=== PATIENT | male | born 1970 | race Caucasian/White ===

== ENCOUNTER 2017-08-27 16:16 | Inpatient (IN) | payer MEDICAID ==
[~2017-08-27] VITALS: Ht 180.3 cm; Wt 113.0 kg
[2017-08-27 16:26] VITALS: Ht 180.3 cm; Wt 113.0 kg
[2017-08-27 18:07] LABS: BASOPHIL % 0.4 % (0-2); RED CELL DISTRIBUTION WIDTH 13.9 % (11.5-14.5)
[2017-08-27 18:10] LABS: CALCIUM 9.1 mg/dL (8.5-10.1); CARBON DIOXIDE 26.4 mmol/L (21-32); CHLORIDE SERUM 100 mmol/L (98-107); CREATININE SERUM 1.3 mg/dL (0.7-1.3); GFR1 > 60 mL/min; GLUCOSE SERUM 137 mg/dL (74-106); POTASSIUM SERUM 3.7 mmol/L (3.5-5.1); SODIUM SERUM 139 mmol/L (136-145)
[2017-08-27 18:21] LABS: ALBUMIN 3.5 g/dL (3.4-5.0); ALKALINE PHOSPHATASE 93 U/L (46-116); ALT/SGPT 28 U/L (16-63); AST/SGOT 23 U/L (15-37); BILIRUBIN TOTAL 0.53 mg/dL (0.20-1.00); TOTAL PROTEIN, SERUM 7.8 g/dL (6.4-8.2)
[2017-08-27 18:21] LABS: PLATELET COUNT 115 x10^3mcL (130-400)
[2017-08-27 18:23] LABS: CK-MB 0.5 ng/mL (0-3.6)
[2017-08-27 18:26] LABS: T3 TOTAL 1.51 ng/mL
[2017-08-27 18:39] LABS: FREE T4 1.19 ng/dL (0.76-1.46); FREE THYROXINE INDEX 3.3 ug/dL (1.4-4.5); T4(THYROXINE) 9.1 ug/dL (4.7-13.3)
[2017-08-27 18:41] LABS: C REACTIVE PROTEIN 22.9 mg/dL (<=0.9)
[2017-08-27 20:11] LABS: ERYTHROCYTE SED RATE 28 mm/hr (0-15)
[2017-08-27 20:29] VITALS: BP 140/89
[2017-08-27 20:49] LABS: MAGNESIUM 2.3 mg/dL (1.8-2.4); PHOSPHOROUS 2.6 mg/dL (2.5-4.9)
[2017-08-27 20:51] LABS: CHOLESTEROL/HDL RATIO 7.9
[2017-08-27 21:39] LABS: UA SPECIFIC GRAVITY 1.025 (1.005-1.035); microscopic required? YES; urine erythrocyte NEGATIVE (NEGATIVE)
[2017-08-27 21:57] LABS: AMPHETAMINE QUAL UR NONE DETECTED (See below)
[2017-08-28 05:17] VITALS: BP 106/52
[2017-08-28 07:16] LABS: BASOPHIL % 0.6 % (0-2); RED CELL DISTRIBUTION WIDTH 13.6 % (11.5-14.5)
[2017-08-28 07:33] LABS: CALCIUM 7.3 mg/dL (8.5-10.1); CARBON DIOXIDE 25.2 mmol/L (21-32); CHLORIDE SERUM 100 mmol/L (98-107); CREATININE SERUM 1.2 mg/dL (0.7-1.3); GFR1 > 60 mL/min; GLUCOSE SERUM 128 mg/dL (74-106); POTASSIUM SERUM 3.9 mmol/L (3.5-5.1); SODIUM SERUM 134 mmol/L (136-145)
[2017-08-28 07:50] LABS: PLATELET COUNT 129 x10^3mcL (130-400)
[2017-08-28 09:12] VITALS: BP 103/67
[2017-08-28 17:58] VITALS: BP 116/71
[2017-08-28 20:48] VITALS: BP 119/71
[2017-08-29 05:59] VITALS: BP 106/53
[2017-08-29 07:07] LABS: BASOPHIL % 0.3 % (0-2); PLATELET COUNT 155 x10^3mcL (130-400); RED CELL DISTRIBUTION WIDTH 13.8 % (11.5-14.5)
[2017-08-29 07:21] LABS: ALKALINE PHOSPHATASE 80 U/L (46-116); ALT/SGPT 23 U/L (16-63); AST/SGOT 18 U/L (15-37); BILIRUBIN TOTAL 0.5 mg/dL (0.20-1.00); CALCIUM 7.8 mg/dL (8.5-10.1); CARBON DIOXIDE 30.6 mmol/L (21-32); CHLORIDE SERUM 103 mmol/L (98-107); CREATININE SERUM 1.3 mg/dL (0.7-1.3); GFR1 > 60 mL/min; GLUCOSE SERUM 140 mg/dL (74-106); POTASSIUM SERUM 4.6 mmol/L (3.5-5.1); SODIUM SERUM 138 mmol/L (136-145); TOTAL PROTEIN, SERUM 6.5 g/dL (6.4-8.2)
[2017-08-29 07:22] LABS: ALBUMIN 2.7 g/dL (3.4-5.0)
[2017-08-29 09:30] VITALS: BP 122/72
[2017-08-29 17:48] VITALS: BP 114/70
[2017-08-29 21:23] VITALS: BP 106/60
[2017-08-30 06:00] VITALS: BP 140/94
[2017-08-30 06:23] LABS: BASOPHIL % 0.3 % (0-2); PLATELET COUNT 164 x10^3mcL (130-400); RED CELL DISTRIBUTION WIDTH 13.4 % (11.5-14.5)
[2017-08-30 07:02] LABS: ALKALINE PHOSPHATASE 63 U/L (46-116); ALT/SGPT 32 U/L (16-63); AST/SGOT 22 U/L (15-37); BILIRUBIN TOTAL 0.41 mg/dL (0.20-1.00); CALCIUM 8.5 mg/dL (8.5-10.1); CHLORIDE SERUM 104 mmol/L (98-107); CREATININE SERUM 1.3 mg/dL (0.7-1.3); GFR1 > 60 mL/min; GLUCOSE SERUM 121 mg/dL (74-106); POTASSIUM SERUM 4.5 mmol/L (3.5-5.1); SODIUM SERUM 137 mmol/L (136-145); TOTAL PROTEIN, SERUM 6.2 g/dL (6.4-8.2)
[2017-08-30 07:07] LABS: ALBUMIN 2.6 g/dL (3.4-5.0)
[2017-08-30 08:04] VITALS: BP 109/79
[2017-08-30] MEDS ORDERED: BACTRIM DS1 TAB PO ×2 (15:46→15:49)
[2017-08-30 16:51] VITALS: BP 109/79
[2017-08-30 17:21] VITALS: BP 130/83
== END 2017-08-30 19:12 | disposition home or self-care (01) | DRG 720 ==
LOC: ED 16:16 → MU 19:21
PROVIDERS: Family Medicine; Internal Medicine; Specialist
PROC: 0H9KXZZ Drainage of Right Lower Leg Skin, External Approach (ICD-10-PCS; principal; 2017-08-28)
DX: A41.9 Sepsis, unspecified organism (principal); N17.0 Acute kidney failure with tubular necrosis; E43 Unspecified severe protein-calorie malnutrition; E11.65 Type 2 diabetes mellitus with hyperglycemia; E83.51 Hypocalcemia; D68.59 Other primary thrombophilia; L03.115 Cellulitis of right lower limb; R65.20 Severe sepsis without septic shock; R23.8 Other skin changes; E02 Subclinical iodine-deficiency hypothyroidism; E78.5 Hyperlipidemia, unspecified; E66.9 Obesity, unspecified; Z68.34 Body mass index [BMI] 34.0-34.9, adult; Z71.3 Dietary counseling and surveillance
CPT/HCPCS: 83880; 84439; 97116-GP; J1644; J1885; J2543; J3370; J3490; J7030; Q0092